=== PATIENT | female | born 1955 | race Caucasian/White ===

== ENCOUNTER 2018-10-20 12:18 | Emergency (ER) | payer MEDICAID ==
[~2018-10-20] VITALS: Ht 157.5 cm; Wt 68.0 kg
[2018-10-20 12:27] VITALS: BP 146/76
[2018-10-20] MEDS ORDERED: FLUORESCEIN SODIUM 1MG/STRIP OP ONE (15:30)
[2018-10-20] MEDS ORDERED: TETRACAINE 0.5% OPHTH DROPS 4ML OP ONE (15:30)
== END 2018-10-20 19:00 | disposition home or self-care (01) ==
LOC: ER 18:33
DX: H00.031 Abscess of right upper eyelid (principal); E11.9 Type 2 diabetes mellitus without complications; I10 Essential (primary) hypertension; I25.10 Atherosclerotic heart disease of native coronary artery without angina pectoris; Z90.49 Acquired absence of other specified parts of digestive tract; Z90.710 Acquired absence of both cervix and uterus
CPT/HCPCS: 99283